=== PATIENT | male | born 1975 | race Caucasian/White ===

== ENCOUNTER 2017-07-14 10:36 | Emergency (ER) | payer SELFPAY ==
[~2017-07-14] VITALS: Ht 162.6 cm; Wt 61.5 kg
[2017-07-14 11:02] VITALS: TEMP 36.8; Ht 162.6 cm; Wt 61.5 kg
[2017-07-14] MEDS ORDERED: LIDOCAINE/EPINEPHRINE 1% 20 ML VIAL INFIL STA (11:32)
[2017-07-14] MEDS ORDERED: DIPHTHERIA/TETANUS/PERTUSSIS 0.5 ML SYR/VIAL IM. ONE (11:45)
--- NOTE | 2017-07-14 11:58 | DIAGNOSTIC IMAGING REPORT ---
CT OF THE HEAD WITHOUT CONTRAST CLINICAL HISTORY: Head injury with possible loss of consciousness. COMPARISON STUDY: No previous studies for comparison. CT DOSE: 690.05 mGycm TECHNIQUE: Helical axial images of the head were obtained without IV contrast. Automated exposure control was utilized for the study. A dose lowering technique was utilized adhering to the principles of ALARA. FINDINGS: No acute intracranial hemorrhage, midline shift or mass effect is present. Ventricular system is normal. Basilar cisterns are patent. There are no extra-axial collections. Stanley-white differentiation is maintained. There is a deep laceration of the right aspect of the forehead which extends to the underlying calvarium. There is no associated calvarial fracture. IMPRESSION: 1. No acute intracranial findings. 2. Right forehead laceration. No calvarial fracture. Electronically signed by: Aleksandr Brennan M.D. 07/14/2017 11:56 AM Dictated Date/Time: 07/14/2017 11:52 AM
--- NOTE | 2017-07-14 12:08 | DIAGNOSTIC IMAGING REPORT ---
CT OF THE CERVICAL SPINE WITHOUT CONTRAST CLINICAL HISTORY: Neck pain following fall. COMPARISON STUDY: No previous studies for comparison. TECHNIQUE: Helical axial images of the cervical spine were obtained without IV contrast. Sagittal and coronal reconstructions were viewed. A dose lowering technique was utilized adhering to the principles of ALARA. FINDINGS: Alignment of the cervical spine is anatomic. No acute cervical spine fracture is identified. There are are displaced fractures involving the spinous processes of C7, T1 and T2. There is associated sclerosis. The fractures are likely subacute to chronic. Craniocervical junction is intact. [facility] [employer] image demonstrates an age indeterminate mid shaft fracture of the right clavicle. IMPRESSION: 1. No acute cervical spine fracture or subluxation. 2. Displaced fractures of the spinous processes of C7, T1 and T2. The fractures are likely subacute to chronic. 3. Age-indeterminate but likely subacute to chronic fracture of the right clavicle. Electronically signed by: Aleksandr Brennan M.D. 07/14/2017 12:06 PM Dictated Date/Time: 07/14/2017 11:57 AM
[2017-07-14] MEDS ORDERED: ACETAMINOPHEN 500 MG TAB PO STA (12:51)
--- NOTE | 2017-07-14 14:54 | EMERGENCY ROOM VISIT NOTE ---
ED Visit Note First contact with patient: 11:14 CHIEF COMPLAINT: Facial laceration HISTORY OF PRESENT ILLNESS: This 41-year-old male patient presents emergency department approximately 3 hours after receiving a large laceration to the right forehead. The patient presents ambulatory, but states he was at [employer] prior to coming here. The patient is uncertain exactly what happened, and states he remembers falling, but the next thing he remembers, he was on the ground and noticed blood all over his head. He is uncertain what he fell into, but suspects concrete steps. The patient does complain of some mild dizziness. There was no vomiting, or unusual behavior after the injury. Denies neck pain. No headache, nausea, or blurred vision. There is moderate bleeding. The patient rates the pain as throbbing and 8/10. The patient's tetanus shot is not up to date. Of note, the patient's primary language is Upper Sorbian. A female friend with him is interpreting for him. REVIEW OF SYSTEMS: A 6 system review of systems was completed with positives and pertinent negatives listed in the HPI. ALLERGIES: None MEDICATIONS: None PMH: None SOCIAL HISTORY: The patient lives locally with family. He denies drug, tobacco use. He admits to occasional alcohol use. PHYSICAL EXAM: Vital Signs: Reviewed Nurse's notes, vital signs stable. GENERAL : This is a 41-year-old male, in no acute distress, well-developed, well-nourished. NEURO: The patient is alert and oriented to person place and time. No focal neurological defects. EYES: Pupils are round, equal, and react to light. EOMI. EARS: No hemotympanum. NECK: The patient is wearing a cervical collar. Supple. cervical spine tenderness present on examination. FACE: Facial bone tenderness present, but no mandibular tenderness. The mouth can open fully. The teeth are well aligned. No loose or chipped teeth. SKIN: There is a 12 cm laceration on the right anterior forehead which is gaping open. The laceration does extend through the subcutaneous tissue to the galea and the skull is visible. The edges gape apart. There is active bleeding and no foreign material in the wound. There are no deep structures present. Capillary refill less than two seconds. Normal sensation to light and sharp touch. RADIOLOGY: CT OF THE HEAD WITHOUT CONTRAST CLINICAL HISTORY: Head injury with possible loss of consciousness. COMPARISON STUDY: No previous studies for comparison. CT DOSE: 690.05 mGycm TECHNIQUE: Helical axial images of the head were obtained without IV contrast. Automated exposure control was utilized for the study. A dose lowering technique was utilized adhering to the principles of ALARA. FINDINGS: No acute intracranial hemorrhage, midline shift or mass effect is present. Ventricular system is normal. Basilar cisterns are patent. There are no extra-axial collections. Stanley-white differentiation is maintained. There is a deep laceration of the right aspect of the forehead which extends to the underlying calvarium. There is no associated calvarial fracture. IMPRESSION: 1. No acute intracranial findings. 2. Right forehead laceration. No calvarial fracture. CT OF THE CERVICAL SPINE WITHOUT CONTRAST CLINICAL HISTORY: Neck pain following fall. COMPARISON STUDY: No previous studies for comparison. TECHNIQUE: Helical axial images of the cervical spine were obtained without IV contrast. Sagittal and coronal reconstructions were viewed. A dose lowering technique was utilized adhering to the principles of ALARA. FINDINGS: Alignment of the cervical spine is anatomic. No acute cervical spine fracture is identified. There are are displaced fractures involving the spinous processes of C7, T1 and T2. There is associated sclerosis. The fractures are likely subacute to chronic. Craniocervical junction is intact. [employer] image demonstrates an age indeterminate mid shaft fracture of the right clavicle. IMPRESSION: 1. No acute cervical spine fracture or subluxation. 2. Displaced fractures of the spinous processes of C7, T1 and T2. The fractures are likely subacute to chronic. 3. Age-indeterminate but likely subacute to chronic fracture of the right clavicle. EMERGENCY DEPARTMENT COURSE: I examined the patient. He does complain of more pain and requests Tylenol. He was given 1000mg Tylenol PO. CT scan of the head/c -spine were ordered and reviewed by myself and radiologist as above. C-spine cleared by myself after CT scan. Verbal consent was obtained to perform the procedure. Using sterile technique the wound was cleansed with Betadine. The area was sterilely draped. 8 ml of 1% buffered lidocaine was used to anesthetize the laceration on the face. Once the patient was anesthetized, the wound was copiously irrigated under pressure with sterile saline. The wound was explored and was as described above. The galea was closed using 14 simple interrupted 5-0 Vicryl sutures. 3 subcuticular 5-0 Vicryl sutures were then placed to close the subcutaneous tissue of the inferior aspect of the laceration. The external layer was then repaired using 30 simple interrupted 6-0 nylon sutures with the wound edges being well approximated. The patient tolerated the procedure well. Hemostasis was achieved. The area was cleaned with sterile saline and dressed with bacitracin ointment. The patient was given Tdap immunization. The patient was discharged home in good condition. I did discuss incidental findings of spinous process fractures and clavicle fracture with the patient. He states he is aware of all of these injuries and that they are old from when he was approximately 20 years old. There are no obvious acute abnormalities. I attest that I have personally reviewed the patient's current medication list. Patient was found to have normal blood pressure on screening and does not require follow-up. Etiologies such as closed head injury/concussion, ICH, SAH, infection, skull fracture, contusion, c-spine fracture, malignancy, as well as others were entertained. DIAGNOSIS: Complex facial laceration, closed head injury Current/Historical Medications Scheduled Cephalexin Monohydrate (Keflex), 500 MG PO QID Allergies Coded Allergies: No Known Allergies (Unverified , 07/14/17) Vital Signs Date Time Temp Pulse Resp B/P (MAP) Pulse Ox O2 Delivery O2 Flow Rate FiO2 07/14/17 15:07 70 16 118/66 96 07/14/17 12:40 75 18 120/67 97 07/14/17 11:07 20 07/14/17 11:02 36.8 81 20 114/73 97 Room Air Medications Administered Medications (Trade) Dose Ordered Sig/Vivienne Route Start Time Stop Time Status Last Admin Dose Admin Lidocaine/ Epinephrine (Xylocaine/Epine 1% Inj) 20 ml ONE STAT INFIL 07/14/17 11:32 07/14/17 11:34 DC 07/14/17 12:04 20 ML Diphtheria/ Pertussis/Tetanus Vacc (Adacel Inj) 0.5 ml ONCE ONCE IM. 07/14/17 11:45 07/14/17 11:46 DC 07/14/17 12:04 0.5 ML Acetaminophen (Tylenol Tab) 1,000 mg NOW STAT PO 07/14/17 12:51 07/14/17 12:52 DC 07/14/17 12:55 1,000 MG Departure Information Impression Primary Impression: Laceration of face, complex Additional Impression: Head injury without fracture of skull Dispostion Home / Self-Care Condition GOOD Prescriptions Cephalexin Monohydrate (Keflex) 500 Mg Cap 500 MG PO QID for 5 Days, #20 CAP Prov: Melvina Sinha PA-C 07/14/17 Referrals No Doctor, Assigned (PCP) Patient Instructions ED Head Injury Closed, ED Laceration Facial Sutr Tape, Epuramat Additional Instructions You have received 30 external sutures on your forehead. These sutures are NOT dissolvable and WILL need to be removed by a health care provider in 8-10 days. You can return to the Emergency Department or contact your Primary Care Provider to have the sutures removed. CT Scan of your head/brain demonstrated no acute bleeding or other abnormalities. This does not completely rule out the risk for future damage to the brain. As discussed, there were several old fractures of the vertebra, C7-T2 as well as an old collar bone fracture. I do recommend orthopedic follow-up. You should relax in a quiet, dark place for the rest of the day. Avoid any possible triggers including: cigarette smoke, caffeine, nicotine, chocolate, wine, beer, loud noises or music, or bright lights. There are sutures which are dissolvable under the skin which will not need to be removed. Proper wound care is essential for adequate wound healing and infection prevention. You can shower and clean the wound with soap and water. Do not scour over the wound, pat dry with a towel. Do not submerse the wound (i.e. bathe or dish wash) until the sutures have been removed. You can use an antibiotic ointment with a dressing over the wound for the next 3-4 days. After this time you may leave the wound dry and open to the air. If crust develops over the wound you can use a Q-tip to apply a 1:1 peroxide:water solution to clean the wound. Cephalexin(Keflex) 500mg: Take one pill four times daily for 5 days to prevent skin infection. All antibiotics can cause diarrhea. If this occurs and you feel worse or it does not resolve in 1-2 days follow up with your doctor or return to the Emergency Department as this could be signs of serious underlying problems. Any medication can cause an allergic reaction, stop the pills immediately and return to the ER for rash, hives, breathing difficulties, or swelling. Look for signs of infection of the wound including: increased pain, swelling, foul discharge, streaking, or increased temperature. If any of these are noticed you should return to the Emergency Department for further assessment and treatment. As with any laceration you may have received nerve damage to the surrounding tissues. This damage may or may not be permanent. You should keep the area covered with sunscreen for the first 6 months to 1 year when at risk for exposure to help minimize scarring. You can also use scar reducing creams or Vitamin E oil to help minimize scarring. For pain control, you can use the following [id number] medicines (if >12 yo): Ibuprofen(Motrin, Advil) may be used for fever or pain. Use 600mg every six hours as needed. Take with food. Avoid using more than 2400mg in a 24 hour period. Do not use 2400mg per day for more than three consecutive days without physician direction. Prolonged inappropriate use can lead to stomach upset or ulcers. (AND/OR) Acetaminophen(Tylenol) may be used for fever or pain. Use 1000mg every six hours as needed. Avoid using more than 3000mg in a 24 hour period. Return to the Emergency Department if your current symptoms worsen despite treatment course outlined above, or if you develop any of the following symptoms : intractable pain despite aforementioned treatment course, visual disturbances , loss of vision, unilateral weakness or facial drooping, slurring of speech, loss of coordination, or loss of consciousness. Return to the emergency department if your symptoms worsen despite treatment course outlined above. Please follow-up with the PCP in 2-3 days for re-check of the injury and due to head injury. Problem Qualifiers Primary Impression: Laceration of face, complex Encounter type: initial encounter Qualified Codes: S01.91XA - Laceration without foreign body of unspecified part of head, initial encounter Additional Impression: Head injury without fracture of skull Encounter type: initial encounter Qualified Codes: S09.90XA - Unspecified injury of head, initial encounter
[2017-07-14] MEDS ORDERED: CEPH500C PO (14:55)
[2017-07-14 15:07] VITALS: BP 118/66; PULSE 70; O2SAT 96
== END 2017-07-14 15:05 | disposition home or self-care (01) ==
LOC: C.EDB 10:39 → C.EDD 15:05
DX: S01.81XA Laceration without foreign body of other part of head, initial encounter (principal); W19.XXXA Unspecified fall, initial encounter; Y92.9 Unspecified place or not applicable